=== PATIENT | female | born 1985 | race African-American/Black ===

== ENCOUNTER 2018-11-26 07:03 | Inpatient (IN) | payer MEDICAID, OTHER ==
[2018-11-26] MEDS ORDERED: Ondansetron PF 4 MG/2 ML Vial IVP PRN ×3 (07:35→15:30)
[2018-11-26] MEDS ORDERED: Promethazine HCl 25 MG/ML VIAL IM PRN ×4 (07:35→15:30)
[2018-11-26] MEDS ORDERED: Bicitra 30 ML UDCUP PO SCH ×2 (07:45→10:15)
--- NOTE | 2018-11-26 08:02 | PDOC.LDHP ---
Labor and Delivery H&P Chief complaint: scheduled section HPI: 33 yo @ 39.3 by 1T ultrasound presents for scheduled RLTCS. Patient has no complaints. No vaginal discharge, bleeding, LOF. Feels movement. Current gestational age (weeks): 39 Due date: 11/30/18 Dating criteria: first trimester ultrasound Grav: 3 Para: 2 OB History Details: 2001 Current complications: other (HSV, excessive weight gain) Abnormal US findings: No Current medications: pre- vitamins, other (valacyclovir) Previous surgical history: low tranverse CS, cholecystectomy, other (L4-5 lumbar surgery, tonsillectomy) Social history: none - Physical Exam Vital signs reviewed and normal: yes General: NAD Heart: RRR Lungs: CTAB Abdomen: NTTP Extremeties: pitting edema (+1 b/l LE) FHT: category 1 (130/mod/+accel/no decel) Estelle contractions every: None - OB Labs Blood type: A RH: positive Antibody Screen: negative RPR: negative HEPSAg: negative 1 hour GCT: negative (106) GBS: positive Urine drug screen: not done Rubella: immune Additional Labs: A1c 5.5 sickle cell negative Hep C Ab nonreactive - Assessment L&D Assessment: scheduled repeat section - Plan Plan: admit to L&D, to OR for section -: Plan for RLTCS - orders placed, will prepare for surgery - hx of LTCS x1, anterior placenta, 2014 HSV - has had outbreak during - on valacyclovir ppx, denies current outbreak Excessive weight gain during - EFW 46% at 28w HR-HPV positive - Co-testing recommended in 12 mo GBS+ - membranes intact, no LOF Dispo: admit to L&D for scheduled RLTCS Addendum - Attending - Attending Attestation Date/Time: 11/26/18 1015 I personally evaluated the patient and discussed the management with Dr. Peterson I agree with the History, Examination, Assessment and Plan documented above with any addition or exceptions noted below- 33 yo @39.3 weeks admitted for elective repeat C_section. Denies any complaints. (+)FM. Afebrile VSS. Exam repeated and agree with resident's findings. A/P: 1) IUP @39.3 weeks for elective repeat - risks/benefits of procedure discussed with patient and agrees to proceed. Consent signed. Await OR availability.
[2018-11-26 08:50] LABS: Hemoglobin 13.1 g/dL (12.0-16.0); Mean Corpuscular HGB CONC 33.9 g/dL (32.0-36.0); Mean Corpuscular Hemoglobin 30.4 pg (27.0-31.0); Mean Corpuscular Volume 89.8 fL (78.0-98.0); Mean Platelet Volume 8.2 fL (7.4-10.4); Platelet Count 183 thou/uL (130-400); RBC Distribution Width 13.6 % (11.5-14.5); Red Blood Cell (RBC) Count 4.29 mill/uL (4.20-5.40); White Blood Cell (WBC) Count 7.9 thou/uL (4.8-10.8)
[2018-11-26 09:30] LABS: HBSAg Index 0.26 S/CO (0-0.99); Hep B Surf Ag Non-Reactive S/CO (NonReactive)
[2018-11-26 09:39] LABS: Syphilis Antibody Nonreactive (Nonreactive); Syphilis Antibody Index 0.05 S/CO (<1.00 Non-Reactive)
[2018-11-26 09:41] VITALS: BMI 42.9
[2018-11-26] MEDS ORDERED: CEFAZOLIN 2 GM/50 ML BAG ONE (10:07)
[2018-11-26] MEDS ORDERED: NS / Oxytocin 40 units/1000ml 1,000 ML ONE (10:08)
[2018-11-26] MEDS ORDERED: CEFAZOLIN/Water 2 GM/20 ML SYRINGE SLOW IVP SCH (10:15)
[2018-11-26] MEDS ORDERED: Morphine PF 1 MG/ML SYR ONE (10:20)
[2018-11-26] MEDS ORDERED: Oxytocin 10 UNITS/ML VIAL ONE ×2 (10:24→10:35)
[2018-11-26] MEDS ORDERED: CEFAZOLIN 2 GM/50 ML-DEXTROSE 2 GM in Premix Bag 1 BAG IVPB SCH (10:30)
[2018-11-26] MEDS ORDERED: Succinylcholine Chloride 20 MG/ML 10 ml SYRINGE FS ONE (10:35)
[2018-11-26] MEDS ORDERED: PROPOFOL 0 ML ONE (10:35)
[2018-11-26] MEDS ORDERED: ePHEDrine/0.9% NaCl/PF SYRINGE 50 mg/10 ml ONE (10:54)
[2018-11-26] MEDS ORDERED: Lidocaine 1% PF 5 ML VIAL ONE (11:03)
[2018-11-26] MEDS ORDERED: PHENYLEPHRINE-NS 100 MCG/ML 10 ML SYRINGE ONE (11:03)
[2018-11-26] MEDS ORDERED: Naloxone HCl 0.4 mg/ml Vial IVP PRN ×4 (11:09→15:30)
[2018-11-26] MEDS ORDERED: Ketorolac Tromethamine 30 MG/ML VIAL IVP PRN ×2 (11:09→15:30)
[2018-11-26] MEDS ORDERED: diphenhydrAMINE 50 MG/ML VIAL IVP PRN ×2 (11:09→15:30)
[2018-11-26] MEDS ORDERED: Promethazine HCl 25 MG/ML VIAL SLOW IVP PRN (11:09)
[2018-11-26] MEDS ORDERED: Morphine Sulfate 2 MG/ML SYRINGE SLOW IVP PRN (11:09)
[2018-11-26] MEDS ORDERED: Naloxone HCl 0.4 mg/ml Vial IV PRN ×2 (11:09→15:30)
[2018-11-26] MEDS ORDERED: Ondansetron HCl/PF 4 MG/2 ML Vial IVP PRN ×2 (11:09→15:30)
[2018-11-26] MEDS ORDERED: Eucerin (Mineral Oil/Petrolatum,White) 30 gm Jar TOP PRN ×2 (11:09→15:30)
[2018-11-26] MEDS ORDERED: Promethazine HCl 25 MG SUPP PR PRN ×2 (11:09→15:30)
[2018-11-26] MEDS ORDERED: Ondansetron PF 4 MG/2 ML Vial ONE (11:15)
[2018-11-26] MEDS ORDERED: Communication Order-Pharmacy FS SCH ×2 (11:15→15:30)
[2018-11-26] MEDS ORDERED: Dexamethasone 4 mg/ml Vial ONE (11:44)
[2018-11-26] MEDS ORDERED: Ketorolac Tromethamine 30 MG/ML VIAL ONE (11:44)
[2018-11-26] MEDS ORDERED: Meperidine HCl/PF 25 MG/ML VIAL ONE (14:52)
[2018-11-26] MEDS ORDERED: Ketorolac Tromethamine 30 MG/ML VIAL IVP SCH (15:30)
[2018-11-26] MEDS ORDERED: HYDROmorphone 2 MG/ML VIAL SLOW IVP PRN (15:30)
[2018-11-26] MEDS ORDERED: L&D-Morphine 4 MG/ML VIAL SLOW IVP PRN (15:30)
[2018-11-26] MEDS ORDERED: Meperidine HCl/PF 25 MG/ML VIAL SLOW IVP PRN (15:30)
[2018-11-26] MEDS ORDERED: NS / Oxytocin 40 units/1000ml 1,000 ML IV SCH (16:08)
[2018-11-26] MEDS ORDERED: Lanolin Ointment 7 GM TUBE TOP PRN (16:08)
[2018-11-26] MEDS ORDERED: Bisacodyl 10 MG SUPP PR PRN (16:08)
[2018-11-26] MEDS ORDERED: Methylergonovine 0.2 MG TAB PO PRN (16:08)
[2018-11-26] MEDS ORDERED: Acetaminophen 325 MG TAB PO PRN (16:08)
[2018-11-26] MEDS ORDERED: diphenhydrAMINE 25 MG CAP PO PRN (16:08)
[2018-11-26] MEDS ORDERED: Misoprostol 200 MCG TAB PR PRN (16:08)
[2018-11-26] MEDS ORDERED: Lactated Ringer's 1,000 ML IV SCH (16:08)
[2018-11-26] MEDS ORDERED: Methylergonovine 0.2 MG/ML VIAL IM PRN (16:08)
--- NOTE | 2018-11-26 18:11 | PDOC.EVN ---
Event Note - Event Note Event Note: 4 hour post op check from 1600 Patient in PP room. Reports her sweating and chills have resolved. She feels tired but otherwise no complaints. Previously had nausea but now has an appetite and plans to try something small. Pain well controlled. Wound vac in place. Fundus firm and at umbilicus. Baby in NICU.
--- NOTE | 2018-11-26 19:46 | PDOC.OPDEL ---
OB Operative/Delivery Note Delivery Dr/Surgeon: Elias Ridley Assist: Nicholas Procedure/Post Delivery Dx: repeat low transverse CS Weeks gestation: 39 Anesthesia: spinal - Findings A Sex: male - 1 min: 8 - 5 min: 8 - Additional Findings/Plan Placenta delivered: spontaneous findings: low transverse hysterotomy without extension, normal uterus, normal tubes, normal ovaries Estimated blood loss: 805 Compilations/Other Findings: Procedure Note Date of Procedure: 11/26/2018 Resident Surgeon: Bonilla Ridley, PGY-2 Pediatric Cns Surgeon: Marli Peterson, PGY-1 Attending Surgeon: Allyssa Gold Procedure: Repeat low transverse caesarean section Preoperative Diagnosis: 1)Term intrauterine 2)Previous 3) HSV (w/ outbreak during ) 4) GBS+ 5) HR-HSV Postoperative Diagnosis: 1)same as above plus Anesthesia: spinal Indications: The patient is a 33 year old female at 39 weeks gestation who presents for a repeat scheduled . Procedure in Detail: After risks, benefits, and alternatives were explained to the patient, she gave informed consent. Pre-operative antibiotics included Cefazolin 2 gram IV. The patient was taken to the operating room and spinal anesthesia was initiated. She was placed in the supine position with a left tilt and prepped and draped in usual sterile fashion. A Pfannenstiel incision was made with a scalpel and carried down to the level of the fascia which was sharply nicked. The fascial cut was extended bilaterally with curved Bledsoe sissors. The inferior and superior edges of the cut fascial edges were elevated with Leah clamps and the underlying rectus muscles were sharply and bluntly dissected free. The recti were divided digitally and retracted manually. The peritoneum was entered bluntly and retracted manually. Bladder blade was placed. Bladder flap was created with Metzenbaum scissors. A low transverse score was made with the scalpel and the uterus was entered in the midline with the scalpel. Clear fluid was seen. There was a large amount of fluid noted after rupture. The hysterotomy was extended manually. The infant was noted to be vertex and was easily delivered by fundal pressure. Mouth and nares were bulb suctioned. Cord clamped and cut and grossly normal male was handed to waiting nurse. Cord blood was obtained. Placenta was manually extracted, found to be intact with 3 vessel cord and discarded. The uterus was externalized and the endometrium was curetted with a dry lap. The bladder blade was replaced and the uterus was closed with a running locking #1 monocryl followed by a running non-locking #1 Monocryl imbricating suture. Following this hemostasis was noted. The abdomen was irrigated with saline and suctioned free of clots. The uterus was internalized and the hysterotomy was again noted to be hemostatic. The fascia was closed with a running non-locking 0-Vicryl suture. The subcutaneous tissue was irrigated and there were no bleeders. The subcutaneous layer was then closed with 6 interrupted 2-0 plain sutures. The skin was approximated with cheyanne and a pressure dressing was placed. All counts were correct. The patient tolerated the procedure well and was taken to the recovery room in stable condition. Estimated Blood Loss: QBL 805 mL Complications: NoneSpecimens: Cord blood sent to lab for blood type Findings: Grossly normal male infant with apgars of 8 and 8. Infant had good tone but would have to go to NICU for breathing likely due to TTN. Grossly normal placenta with 3 vessel cord discarded. Drains: Osborne to gravity draining clear urine Post delivery plan: routine recovery Addendum - Attending - Attending Attestation Date/Time: 11/30/18 2011 I was present, assisted and supervised the repeat of this 33 yo @ 39.3 weeks on 11/26/2018. Viable male infant was delivered in vtx presentation Apgars 8/8. QBL 805mL. Residents: Khai/Nicholas
[2018-11-27] MEDS: Docusate Calcium (SURFAK) 240 MG CAP PO SCH ×3 (03:55→21:40)
[2018-11-27 06:07] LABS: Hemoglobin 11.9 g/dL (12.0-16.0); Mean Corpuscular HGB CONC 33.4 g/dL (32.0-36.0); Mean Corpuscular Hemoglobin 30.6 pg (27.0-31.0); Mean Corpuscular Volume 91.6 fL (78.0-98.0); Mean Platelet Volume 8.3 fL (7.4-10.4); Platelet Count 175 thou/uL (130-400); RBC Distribution Width 13.8 % (11.5-14.5); Red Blood Cell (RBC) Count 3.91 mill/uL (4.20-5.40); White Blood Cell (WBC) Count 10.9 thou/uL (4.8-10.8)
--- NOTE | 2018-11-27 08:06 | PDOC.PP ---
Post Progress Note Post Day #: 1 Subjective: Pt reports doing much better this morning. Pt reports having some increased sweating and itching yesterday. Pt thinks reaction to morphine and anesthesia. Pt did not eat much yesterday as she had some vomiting. Pt reports feeling hungry today. Reports passing gas. Reports pain as minimal. Denies any headaches , lightheadness, dizziness. Denies any chest pain or SOB. Reports pain being well controlled at this time. PO intake tolerated: yes Flatus: yes Ambulation: yes Vital Signs (12 hours) Temp Pulse Resp BP Pulse Ox 11/27/18 04:05 98.3 F 58 L 18 106/55 L 11/27/18 00:48 98.0 F 52 L 18 132/65 98 11/26/18 20:11 98 Weight Weight 120.656 kg - Physical Examination General: NAD Cardiovascular: no m/r/g, RRR Respiratory: clear to auscultation bilaterally, non-labored breathing Abdominal: + bowel sounds, lochia (Reports as light), no distention, appropriately TTP Fundus firm & at: below umbilicus Extremities: negative homans (B) Skin: CS incision dry & intact Deviation from normal: Wound vac in place. No drainage noted. No redness or increased tenderness Neurological: no gross focal deficits Psychiatric: A&Ox3, normal affect Result Diagrams: 11/27/18 05:44 Additional Labs: Post Labs Blood Type A POSITIVE 11/26/18 08:37 Hep Bs Antigen Non-Reactive S/CO (NonReactive) 11/26/18 08:37 (1) Status: Acute Qualifiers: Weeks of gestation: 39 weeks Qualified Code(s): Z3A.39 - 39 weeks gestation of (2) Status post repeat low transverse section Code(s): Z98.891 - HISTORY OF UTERINE SCAR FROM PREVIOUS SURGERY Status: Acute (3) HSV infection Code(s): B00.9 - HERPESVIRAL INFECTION, UNSPECIFIED Status: Acute (4) GBS carrier Code(s): Z22.330 - CARRIER OF GROUP B STREPTOCOCCUS Status: Acute - Assessment/Plan 33 yo ->3 delivered via RLTCS on 11/26/17 -Post Op day 1 -Pt reports still being itching. Will continue with Benadryl PRN. Likely reaction to anesthesia -Pt has not tried PO yet. Pt feeling hungry. -Pain being well controlled. Continue current pain regimen. HSV - has had outbreak during - on valacyclovir ppx. No current outbreak at this time. Excessive weight gain during - EFW 46% at 28w HR-HPV positive - Co-testing recommended in 12 mo GBS+ - tx with intraoperative abx. Dispo: admit to L&D for scheduled RLT Addendum - Attending - Attending Attestation Date/Time: 11/27/18 3640 I personally evaluated the patient and discussed the management with Dr. Ridley. I agree with and repeated the History, Examination, Assessment and Plan documented above with any addition or exceptions noted below. Itching but no resp/GI/ENT symptoms. PRN benadryl. Hypothermia from yesterday felt to be likely 2/2 exposure as Kelly hugger was unable to be connected during the entire case due to mechanical issues. Resolved.
[2018-11-27] MEDS: Prenatal Vitamin 1 TAB PO SCH (08:52)
[2018-11-27] MEDS ORDERED: Adacel (T-DAP) 0.5 ML SYRINGE IM ONE (09:00)
[2018-11-27] MEDS: HYDROcodone/Acetaminophen 5/325 mg Tablet PO PRN ×2 (12:09→20:41)
[2018-11-27] MEDS: Simethicone Chewable 80 MG TAB PO PRN (12:09)
[2018-11-27] MEDS: Ibuprofen 800 MG TAB PO SCH ×2 (14:07→21:34)
[2018-11-28 00:41] VITALS: TEMP 98.3
[2018-11-28] MEDS: HYDROcodone/Acetaminophen 5/325 mg Tablet PO PRN ×4 (03:58→16:14)
[2018-11-28] MEDS: Simethicone Chewable 80 MG TAB PO PRN ×2 (03:58→12:18)
[2018-11-28] MEDS: Ibuprofen 800 MG TAB PO SCH ×2 (05:59→12:18)
[2018-11-28 08:13] VITALS: BP 98/52
--- NOTE | 2018-11-28 08:15 | PDOC.PP ---
Post Progress Note Post Day #: 2 Subjective: Pt reports doing well. Reports being sleep deprived. States pain being well controlled. Denies any more sweating or itching. Denies any SOB or chest pain. Pt reports passing gas. tolerated PO. Is up and walking around. No other acute events overnight. PO intake tolerated: yes Flatus: yes Ambulation: yes Vital Signs (12 hours) Temp Pulse Resp BP Pulse Ox 11/28/18 08:13 98.3 F 67 20 98/52 L 96 11/28/18 04:00 98.3 F 73 16 110/53 L 97 11/28/18 00:05 98.3 F 75 18 115/59 L 97 Weight Admit Weight 120.656 kg Weight 120.656 kg - Physical Examination General: NAD Cardiovascular: no m/r/g, RRR Respiratory: clear to auscultation bilaterally, non-labored breathing Abdominal: + bowel sounds, lochia, no distention, appropriately TTP Extremities: negative homans (B) Skin: CS incision dry & intact Deviation from normal: Wound vac in place Neurological: no gross focal deficits Psychiatric: A&Ox3, normal affect Result Diagrams: 11/27/18 05:44 Additional Labs: Post Labs Blood Type A POSITIVE 11/26/18 08:37 Hep Bs Antigen Non-Reactive S/CO (NonReactive) 11/26/18 08:37 (1) Status: Acute Qualifiers: Weeks of gestation: 39 weeks Qualified Code(s): Z3A.39 - 39 weeks gestation of (2) Status post repeat low transverse section Code(s): Z98.891 - HISTORY OF UTERINE SCAR FROM PREVIOUS SURGERY Status: Acute (3) HSV infection Code(s): B00.9 - HERPESVIRAL INFECTION, UNSPECIFIED Status: Acute (4) GBS carrier Code(s): Z22.330 - CARRIER OF GROUP B STREPTOCOCCUS Status: Acute - Assessment/Plan 33 yo ->3 delivered via RLTCS on 11/26/17 -Post Op day 2 -Pt no longer itching. -Pt tolerating PO. Passing gas. Has not had BM -Pain being well controlled. Pt has wound vac in place. Will keep in place for 7 days. -VS stable yesterday and overnight. HSV - has had outbreak during - on valacyclovir ppx. No current outbreak at this time. Excessive weight gain during - EFW 46% at 28w HR-HPV positive - Co-testing recommended in 12 mo GBS+ - tx with intraoperative abx.
[2018-11-28] MEDS: Prenatal Vitamin 1 TAB PO SCH (08:19)
[2018-11-28] MEDS: Docusate Calcium (SURFAK) 240 MG CAP PO SCH (08:19)
== END 2018-11-28 16:45 | disposition home or self-care (01) | DRG 787 ==
LOC: L&D 07:03 → UNDOADMIN 07:03 → L&D 07:31 → 3SW 15:43
PROVIDERS: ADMIT Family Medicine; ATTEND Family Medicine
PROC: 10D00Z1 Extraction of Products of Conception, Low, Open Approach (ICD-10-PCS; principal; 2018-11-26)
DX: O34.211 Maternal care for low transverse scar from previous cesarean delivery (principal); O98.52 Other viral diseases complicating childbirth; O98.32 Other infections with a predominantly sexual mode of transmission complicating childbirth; O99.824 Streptococcus B carrier state complicating childbirth; B00.9 Herpesviral infection, unspecified; A63.0 Anogenital (venereal) warts; O26.03 Excessive weight gain in pregnancy, third trimester; Z3A.39 39 weeks gestation of pregnancy; Z37.0 Single live birth; Z90.49 Acquired absence of other specified parts of digestive tract; Z98.890 Other specified postprocedural states; Z90.89 Acquired absence of other organs
CPT/HCPCS: 36415; 51702; 85027; 86780; 86850; 86900; 86901; 87340; J1100; J1200; J1885; J2001; J2175; J2274; J2405; J2590; J2704